=== PATIENT | male | born 1995 | race African-American/Black ===

== ENCOUNTER 2019-04-04 15:53 | Inpatient (IN) | payer OTHER ==
[~2019-04-04 15:53] MED LIST: INFUSION IV ONE; [UNRECOGNIZED DRUG - OTHER] IV ONE
[2019-04-04 16:18] LABS: ABS Basophils 0.1 10^3/ul (0-0.2); ABS Eosinophils 0.1 10^3/ul (0-0.6); ABS Lymphocytes 1.3 10^3/ul (1.0-4.8); ABS Monocytes 1.1 10^3/ul (0-0.8); ABS Neutrophils 9.1 10^3/ul (1.5-7.7); Eosinophil % 0.7 %; Hematocrit 43 % (42-52); Hemoglobin 14.9 g/dL (14.0-18.0); Lymphocyte % 11.2 %; Mean Corpuscular HGB Conc 35 g/dL (31-36); Mean Corpuscular Hemoglobin 28 pg (27-31); Mean Corpuscular Volume 80 fL (80-94); Mean Platelet Volume 8.6 fL (7.4-10.4); Nucleated Red Blood Cells % 0.2; Platelet Count 183 10^3/uL (150-450); Red Blood Count 5.37 10^6 /uL (4.18-5.48); Red Cell Distribution Width 13 % (10-15); White Blood Count 11.6 10^3/uL (3.5-10.8)
[2019-04-04] MEDS ORDERED: Succinylcholine* 20 MG/ML 10 ML VIAL ONE (16:23)
[2019-04-04] MEDS ORDERED: Midazolam* 1 MG/ML 10 ML VIAL (10 MG) ONE (16:23)
[2019-04-04] MEDS ORDERED: Etomidate* 2 MG/ML 20 ML VIAL (40 MG) ONE (16:23)
--- NOTE | 2019-04-04 16:26 | ED ---
Substance Abuse/Use - HPI Summary HPI Summary: This patient is a 23 year old M presenting to [facility] accompanied by correctional officers with a chief complaint of K2 overdose since earlier today. Pt brought in by EMS for overdose of K2 at [facility]. Pt is unresponsive to verbal stimuli, but responds to painful stimulus. His pupils are dilated and eyes are blood shot. Per corrections officers, pt fell off from a table and was crawling around the yard. Per facility, the pt vomited. The patient rates the pain 0/10 in severity. Symptoms aggravated by nothing. Symptoms alleviated by nothing. History from pt was unobtainable due to nonverbal status from drug overdose - Level 5 Caveat. - History Of Current Complaint Chief Complaint: EDOverdose Stated Complaint: OVERDOSE PER EMS Time Seen by Provider: 04/04/19 16:02 Hx Obtained From: Other: - correctional officers Hx From Patient Unobtainable Due To: Other - nonverbal status due to K2 overdose Onset/Duration of Drug/ETOH Abuse: Hours - earlier today Ingestion History: Type/Name Of Drug - K2 Severity Initially: Moderate Severity Currently: Moderate Aggravating Factor(s): Nothing Alleviating Factor(s): Nothing - Allergies/Home Medications Allergies/Adverse Reactions: Allergies Allergy/AdvReac Type Severity Reaction Status Date / Time No Known Allergies Allergy Verified 04/04/19 18:30 PMH/Surg Hx/FS Hx/Imm Hx Previously Healthy: No Musculoskeletal History: Denies: Hx Arthritis Sensory History: Denies: Hx Cataracts, Hx Legally Blind EENT History: Denies: Hx Deafness, Hx Auditory Problems - Surgical History Surgical History: Unable to Obtain/Confirm - nonverbal status of pt due to drug overdose - Level 5 Caveat Infectious Disease History: No Infectious Disease History: Denies: Traveled Outside the [place] in Last 30 Days - Family History Known Family History: Positive: Other - unable to obtain due to nonverbal status of pt - Level 5 Caveat - Social History Alcohol Use: unable to obtain due to nonverbal status of pt - Level 5 Caveat Hx Substance Use: Yes Smoking Status (MU): Unknown if Ever Smoked - unable to obtain due to nonverbal status of pt - Level 5 Caveat Review of Systems Constitutional: Other - positive - drug overdose Positive: Vomiting All Other Systems Reviewed And Are Negative: No - Comments Additional Review of Systems Comments: Unable to obtain ROS due to nonverbal status of pt from drug overdose - Level 5 Caveat Physical Exam - Summary Physical Exam Summary: Further findings were unobtainable due to nonverbal status of pt due to drug overdose - Level 5 Caveat. Constitutional: Well-developed, Well-nourished, Alert. (-) Distressed Skin: Warm, Dry HENT: Normocephalic; Atraumatic Eyes: Conjunctiva normal Neck: Musculoskeletal ROM normal neck. (-) JVD, (-) Stridor, (-) Tracheal deviation Cardio: Rhythm regular, rate normal, Heart sounds normal; Intact distal pulses; The pedal pulses are 2+ and symmetric. Radial pulses are 2+ and symmetric. (-) Murmur Pulmonary/Chest wall: Effort normal. (-) Respiratory distress, (-) Wheezes, (-) Rales Abd: Soft, (-) tenderness, (-) Distension, (-) Guarding, (-) Rebound Musculoskeletal: (-) Edema Lymph: (-) Cervical adenopathy Neuro: Alert, Oriented x3 Psych: Mood and affect Normal Anal: No foreign body, normal anus, no blood Triage Information Reviewed: Yes Vital Signs On Initial Exam: Initial Vitals Temp Pulse Resp BP Pulse Ox 98.3 F 98 24 111/72 100 04/04/19 15:55 04/04/19 15:55 04/04/19 15:55 04/04/19 15:55 04/04/19 15:55 Vital Signs Reviewed: Yes Diagnostics - Vital Signs Vital Signs Temp Pulse Resp BP Pulse Ox 04/04/19 15:55 98.3 F 98 24 111/72 100 - Laboratory Lab Results: Lab Results 04/04/19 Range/Units 16:10 WBC 11.6 H (3.5-10.8) 10^3/uL RBC 5.37 (4.18-5.48) 10^6 /uL Hgb 14.9 (14.0-18.0) g/dL Hct 43 (42-52) % MCV 80 (80-94) fL MCH 28 (27-31) pg MCHC 35 (31-36) g/dL RDW 13 (10-15) % Plt Count 183 (150-450) 10^3/uL MPV 8.6 (7.4-10.4) fL Neut % (Auto) 78.3 % Lymph % (Auto) 11.2 % Arthur % (Auto) 9.4 % Eos % (Auto) 0.7 % Baso % (Auto) 0.4 % Absolute Neuts (auto) 9.1 H (1.5-7.7) 10^3/ul Absolute Lymphs (auto) 1.3 (1.0-4.8) 10^3/ul Absolute Monos (auto) 1.1 H (0-0.8) 10^3/ul Absolute Eos (auto) 0.1 (0-0.6) 10^3/ul Absolute Basos (auto) 0.1 (0-0.2) 10^3/ul Absolute Nucleated RBC 0.0 10^3/ul Nucleated RBC % 0.2 Result Diagrams: 04/05/19 03:50 04/05/19 03:50 Lab Statement: Any lab studies that have been ordered have been reviewed, and results considered in the medical decision making process. - CT Cervical Spine CT Interpretation Completed By: Radiologist Summary of CT Findings: IMPRESSION: No CT evidence for traumatic cervical spine injury. These findings were reviewed by Dr. Simmons. Brain CT Interpretation Completed By: Radiologist Summary of CT Findings: IMPRESSION: No acute intracranial abnormality. These findings were reviewed by Dr. Simmons. - EKG 1605 Cardiac Rate: NL - 87 BPM EKG Rhythm: Sinus Rhythm Summary of EKG Findings: EKG at 1605 shows 87 BPM, sinus rhythm, no STEMI Re-Evaluation - Re-Evaluation First Eval Re-Evaluation Time: 17:25 Change: Improved Comment: Pt is breathing comfortably. Course/Dx - Course Course Of Treatment: Course of Treatment limited due to Level 5 Caveat - nonverbal status due to drug overdose. This patient is a 23 year old M presenting to [facility] accompanied by correctional officers with a chief complaint of K2 overdose since earlier today. Pt brought in by EMS for overdose of K2 at [address] [place] [address] [facility]. Pt is unresponsive to verbal stimuli, but responds to painful stimulus. His pupils are dilated and eyes are blood shot. Per corrections officers, pt fell off from a table and was crawling around the yard. Per facility, the pt vomited. The patient rates the pain 0/10 in severity. Symptoms aggravated by nothing. Symptoms alleviated by nothing. History from pt was unobtainable due to nonverbal status from drug overdose - Level 5 Caveat. Physical exam shows no foreign body, normal anus, no blood. Further findings were unobtainable due to nonverbal status of pt from drug overdose. Lab results show WBC 11.6, absolute neuts 9.1, absolute monos 1.1, INR 1.41. Brain CT IMPRESSION: No acute intracranial abnormality. Cervical Spine CT IMPRESSION: No CT evidence for traumatic cervical spine injury. EKG at 1605 shows 87 BPM, sinus rhythm, no STEMI. I was unable to obtain substantial medical evidence from [address] [place], [place] [address]al facility. During ED course, pt was given fentanyl, Versed Drip, Versed, fluids, Zofran INJ, Diprivan. At 1729, Dr. Mariano from ICU agrees to admit pt. - Diagnoses Provider Diagnoses: Overdose, Acute encephalopathy - Physician Notifications Discussed Care Of Patient With: Dr. Mariano Time Discussed With Above Provider: 17:29 Instructed by Provider To: Other - Dr. Mariano from ICU agrees to admit pt. - Critical Care Time Critical Care Time: 30-74 min Discharge ED - Sign-Out/Discharge Documenting (check all that apply): Patient Departure - admit Patient Received Moderate/Deep Sedation with Procedure: Yes - Discharge Plan Condition: Fair Disposition: ADMITTED TO [facility] - Billing Disposition and Condition Condition: FAIR Disposition: Admitted to [facility] - Attestation Statements Document Initiated by Scribe: Yes Documenting Scribe: Ricco Valle Provider For Whom Scribe is Documenting (Include Credential): Dr. Benja Simmons MD Scribe Attestation: Ricco Meraz scribed for Dr. Benja Simmons MD on 04/11/19 at 0818. Scribe Documentation Reviewed: Yes Provider Attestation: The documentation as recorded by the Ricco brown accurately reflects the service I personally performed and the decisions made by me, Dr. Benja Simmons MD Status of Scribe Document: Viewed
[2019-04-04 16:37] LABS: ALT 16 U/L (7-52); AST 24 U/L (13-39); Albumin 4.4 g/dL (3.2-5.2); Albumin/Globulin Ratio 1.5 (1-3); Alkaline Phosphatase 51 U/L (34-104); Anion Gap 6 mmol/L (2-11); BUN/Creatinine Ratio 15.2 (8-20); Blood Urea Nitrogen 16 mg/dL (6-24); CO2 Carbon Dioxide 27 mmol/L (22-32); Calcium 9.8 mg/dL (8.6-10.3); Chloride 102 mmol/L (101-111); EGFR African American 104.1 (>60); EGFR Non-African American 86.1 (>60); Globulin 2.9 g/dL (2-4); Glucose 92 mg/dL (70-100); Potassium 4.1 mmol/L (3.5-5.0); Sodium 135 mmol/L (135-145); Total Protein 7.3 g/dL (6.4-8.9)
[2019-04-04] MEDS ORDERED: Ondansetron INJ* 2 MG/ML VIAL ONE (16:39)
[2019-04-04] MEDS ORDERED: Ondansetron INJ* 2 MG/ML VIAL IV ONE (16:45)
[2019-04-04] MEDS: Propofol* 100 ML IV SCH ×3 (16:45→21:50)
[2019-04-04] MEDS ORDERED: fentaNYL* 50 MCG/ML 2 ML VIAL (100 MCG VIAL) IV SLOW PU ONE (16:53)
[2019-04-04 16:57] LABS: Acetaminophen < 15 mcg/mL; Alcohol < 10 mg/dL (<10); Salicylate < 2.50 mg/dL (<30)
[2019-04-04] MEDS ORDERED: Propofol* 100 ML IV SCH ×3 (17:00)
[2019-04-04] MEDS ORDERED: Midazolam* 1 MG/ML 10 ML VIAL (10 MG) IV SLOW PU ONE ×2 (17:03→20:58)
[2019-04-04] MEDS ORDERED: fentaNYL INFUSION 50 MCG/ML* 2,500 MCG/50 ML BAG IV SCH ×2 (17:15→18:00)
[2019-04-04] MEDS: fentaNYL INFUSION 50 MCG/ML* 2,500 MCG/50 ML BAG IV SCH (17:22)
[2019-04-04] MEDS ORDERED: NS 0.9% 1000 ML** 1,000 ML IV SCH (17:45)
[2019-04-04 17:55] LABS: Activated Partial Thrombo Time 32.8 seconds (26.0-38.0); INR 1.41 (0.82-1.09)
[2019-04-04] MEDS ORDERED: Midazolam IV for DRIP* 100 MG in NS 0.9% 100 ML* 80 ML IV SCH (18:00)
--- NOTE | 2019-04-04 18:10 | HP ---
History of Present Illness - History of Present Illness Reason for Visit: ARF on mechanical ventilation History of Present Illness: 23 Y.O. Male from [facility] p/w apparent K2 overdose. Patient came to ED with officers non-responsive. Per reports, patient was behaving erratic at [facility] and crawling around yard. No other medical Hx can be obtained. Patient evaluated in the ED. As patient was non-responsive, patient was emergently intubated. After being intubated, patient became agitated and required high doses of Versed and Fentanyl. Patient also was further paralyzed because he could not be controlled by 3 officers and hand-cuffs. Patient now sedated when I saw him in the ED. - Past Medical History Cardiac: Other - cannot attain Pulmonary: Other - cannot attain PORTFOLIO ARCHITECT: Other - cannot attain Gastrointestinal: Other - cannot attain Psych: Other - cannot attain - Past Surgical History Past Surgical History: Other - cannot attain - Past Family History Family History: Other - cannot attain - Past Social History Drugs: Other - cannot attain Review of Systems - Review of Systems Constitutional: Positive: Other - cannot attain Eyes: Positive: Other - Medications/Allergies Medications: Current Medications Fentanyl Citrate (Fentanyl Infusion Bag 50 Mcg/Ml 50 Ml) 2,500 mcg in 50 mls @ 1.5 mls/hr IV .PER RATE [facility] Last Admin: 04/04/19 17:22 Dose: 1.5 mls/hr Midazolam HCl 100 mg/ Sodium (Chloride) 100 mls @ 10 mls/hr IV .Q24HR ISAIAS; Protocol Sodium Chloride (Ns 0.9% 1000 Ml) 1,000 mls @ 75 mls/hr IV PER RATE [facility] Propofol (Diprivan*) 100 mls @ 0 mls/hr IV .PER PROTOCOL ISAIAS; Protocol Exam - Exam Vital Signs: Vital Signs (72 hours) 04/04/19 04/04/19 04/04/19 15:55 15:56 16:02 Temperature 98.3 F Pulse Rate 98 82 83 Respiratory 24 27 28 Rate Blood Pressure 111/72 111/72 (mmHg) O2 Sat by Pulse 100 97 97 Oximetry 04/04/19 04/04/19 04/04/19 16:26 16:41 16:48 Temperature Pulse Rate 85 100 96 Respiratory Rate Blood Pressure 189/124 144/98 168/80 (mmHg) O2 Sat by Pulse 94 99 99 Oximetry 04/04/19 04/04/19 04/04/19 16:53 17:01 17:03 Temperature Pulse Rate 85 124 Respiratory 22 Rate Blood Pressure 149/69 187/90 (mmHg) O2 Sat by Pulse 100 75 Oximetry 04/04/19 04/04/19 04/04/19 17:08 17:13 17:18 Temperature Pulse Rate 85 87 81 Respiratory Rate Blood Pressure 111/47 104/47 108/49 (mmHg) O2 Sat by Pulse 100 100 100 Oximetry 04/04/19 04/04/19 17:22 17:23 Temperature Pulse Rate 80 Respiratory 44 Rate Blood Pressure 104/48 (mmHg) O2 Sat by Pulse 100 Oximetry General: Other - intubated HEENT: Atraumatic Lungs: Clear to auscultation Cardiovascular: Regular rate Abdomen: Normal bowel sounds, Soft, No tenderness Extremities: No edema Skin: No rashes Neurological: Other - sedated Assessment/Plan - Assessment/Plan Assessment: Overdose 2/2 K2? ARF on MV D#0 2/2 Overdose and airway protection Severe agitation Plan: Admit to ICU Sedate with Fentanyl and Propofol. Max Fentanyl 200 mcg/hr. Attempt to refrain from Benzo's if possible Wean to extubate in AM Low Tidal volume settings. May tolerate better Pressure support tonight if not synching with vent Fall precautions Admit to ICU for monitoring Hold sedation tomorrow at 8 am for extubation trial @ 9 am. 56 minutes
[2019-04-04] MEDS ORDERED: Propofol* 10 MG/ML 20 ML BTL IV PUSH ONE (19:01)
[2019-04-04 19:48] LABS: Urine Appearance Turbid; Urine Bacteria Absent (Absent); Urine Bilirubin Negative (Negative); Urine Blood 1+ (Negative); Urine Color Yellow; Urine Glucose Negative (Negative); Urine Ketones Negative (Negative); Urine Nitrite Negative (Negative); Urine Protein Negative (Negative); Urine Red Blood Cell 3+(>10/hpf) (Absent); Urine Specific Gravity 1.017 (1.010-1.030); Urine Squamous Epithelial Cell Present (Absent); Urine Urobilinogen Negative (Negative); Urine White Blood Cell Trace(0-5/hpf) (Absent)
[2019-04-04 20:06] LABS: Urine Benzodiazepine Screen Presumptive Positive (None Detect); Urine Opiates Screen None Detected (None Detect)
[2019-04-04 21:27] LABS: Troponin I 0.01 ng/mL (<0.04)
[2019-04-04] MEDS: Chlorhexidine MOUTHWASH 0.12%* 15 ML UDC TOPICAL SCH (21:28)
[2019-04-05] MEDS: Chlorhexidine MOUTHWASH 0.12%* 15 ML UDC TOPICAL SCH ×6 (00:14→20:40)
[2019-04-05] MEDS ORDERED: NS 0.9% 1000 ML** 1,000 ML IV ONE (00:16)
[2019-04-05] MEDS: Propofol* 100 ML IV SCH ×3 (00:29→07:03)
[2019-04-05] MEDS: NS 0.9% 1000 ML** 1,000 ML IV SCH ×5 (01:20→22:30)
[2019-04-05] MEDS: fentaNYL INFUSION 50 MCG/ML* 2,500 MCG/50 ML BAG IV SCH (01:56)
[2019-04-05] MEDS: Pantoprazole IV* 40 MG IV SCH (02:08)
[2019-04-05] MEDS ORDERED: NS 0.9% 1000 ML/HR X 1 BAG (TOTAL 1000 ML) IV ONE (03:00)
[2019-04-05 04:08] LABS: Hematocrit 39 % (42-52); Hemoglobin 13.2 g/dL (14.0-18.0); Mean Corpuscular HGB Conc 34 g/dL (31-36); Mean Corpuscular Hemoglobin 28 pg (27-31); Mean Corpuscular Volume 82 fL (80-94); Platelet Count 138 10^3/uL (150-450); Red Blood Count 4.79 10^6 /uL (4.18-5.48); Red Cell Distribution Width 13 % (10-15); White Blood Count 8.7 10^3/uL (3.5-10.8)
[2019-04-05 04:16] LABS: Calcium 7.9 mg/dL (8.6-10.3); EGFR African American 121.3 (>60); EGFR Non-African American 100.2 (>60); Potassium 3.9 mmol/L (3.5-5.0)
--- NOTE | 2019-04-05 09:38 | PN ---
Date of Service: 04/05/19 Critical Care Services: extubated in AM following but still somewhat lethargic Urine tox + for Benzo's which got in the ED Vital Signs: Temp Pulse Resp BP SpO2 FiO2 99.3 F 55 14 100/39 100 50 04/05/19 08:15 04/05/19 08:15 04/05/19 06:00 04/05/19 08:15 04/05/19 08:15 04/05 04:00 Physical Exam: Gen: NAD. Lethargic but following HEENT: EOMI Lungs: CTA B/L Cardiac: RRR Abdomen:+ BS's, Soft, NTP. No rebound or guarding Extremities: No DEXTER Neuro:No focal deficits Fluid Balance (Past 24 Hours): I= O= Net Intake & Output 04/03/19 04/04/19 04/05/19 04/06/19 06:59 06:59 06:59 06:59 Intake Total 3324 Output Total 1640 Balance 1684 Weight 222 lb 10.67 oz Intake: IV Fluids 2864 NS (0.9%) 2864 Medicated IV 433 CC - Propofol/Diprivan 433 IV Narcotic Infusion 27 Fentanyl 27 Output: NG Tube Drainage Amount 650 Winter 990 Labs: Laboratory Results - last 24 hr 04/04/19 04/04/19 04/04/19 16:10 16:10 16:10 WBC 11.6 H RBC 5.37 Hgb 14.9 Hct 43 MCV 80 MCH 28 MCHC 35 RDW 13 Plt Count 183 MPV 8.6 Neut % (Auto) 78.3 Lymph % (Auto) 11.2 [place] % (Auto) 9.4 Eos % (Auto) 0.7 Baso % (Auto) 0.4 Absolute Neuts (auto) 9.1 H Absolute Lymphs (auto) 1.3 Absolute Monos (auto) 1.1 H Absolute Eos (auto) 0.1 Absolute Basos (auto) 0.1 Absolute Nucleated RBC 0.0 Nucleated RBC % 0.2 INR (Anticoag Therapy) APTT Sodium 135 Potassium 4.1 Chloride 102 Carbon Dioxide 27 Anion Gap 6 BUN 16 Creatinine 1.05 Est GFR ( Amer) 104.1 Est GFR (Non-Af Amer) 86.1 BUN/Creatinine Ratio 15.2 Glucose 92 Lactic Acid 0.7 Calcium 9.8 Total Bilirubin 0.90 AST 24 ALT 16 Alkaline Phosphatase 51 Troponin I 0.01 Total Protein 7.3 Albumin 4.4 Globulin 2.9 Albumin/Globulin Ratio 1.5 Urine Color Urine Appearance Urine pH Ur Specific [place] Urine Protein Urine Ketones Urine Blood Urine Nitrate Urine Bilirubin Urine Urobilinogen Ur Leukocyte Esterase Urine WBC (Auto) Urine RBC (Auto) Ur Squamous Epith Cells Urine Bacteria Urine Glucose Urine Ascorbic Acid Salicylates < 2.50 Urine Opiates Screen Acetaminophen < 15 Ur Barbiturates Screen Ur Phencyclidine Scrn Ur Amphetamines Screen U Benzodiazepines Scrn Urine Cocaine Screen U Cannabinoids Screen Serum Alcohol < 10 04/04/19 04/04/19 04/04/19 16:10 19:29 19:29 WBC RBC Hgb Hct MCV MCH MCHC RDW Plt Count MPV Neut % (Auto) Lymph % (Auto) [place] % (Auto) Eos % (Auto) Baso % (Auto) Absolute Neuts (auto) Absolute Lymphs (auto) Absolute Monos (auto) Absolute Eos (auto) Absolute Basos (auto) Absolute Nucleated RBC Nucleated RBC % INR (Anticoag Therapy) 1.41 H APTT 32.8 Sodium Potassium Chloride Carbon Dioxide Anion Gap BUN Creatinine Est GFR ( Amer) Est GFR (Non-Af Amer) BUN/Creatinine Ratio Glucose Lactic Acid Calcium Total Bilirubin AST ALT Alkaline Phosphatase Troponin I Total Protein Albumin Globulin Albumin/Globulin Ratio Urine Color Yellow Urine Appearance Turbid Urine pH 5.0 Ur Specific [place] 1.017 Urine Protein Negative Urine Ketones Negative Urine Blood 1+ A Urine Nitrate Negative Urine Bilirubin Negative Urine Urobilinogen Negative Ur Leukocyte Esterase Negative Urine WBC (Auto) Trace(0-5/hpf) Urine RBC (Auto) 3+(>10/hpf) A Ur Squamous Epith Cells Present A Urine Bacteria Absent Urine Glucose Negative Urine Ascorbic Acid * A Salicylates Urine Opiates Screen None detected Acetaminophen Ur Barbiturates Screen None detected Ur Phencyclidine Scrn None detected Ur Amphetamines Screen None detected U Benzodiazepines Scrn Presumptive positive A Urine Cocaine Screen None detected U Cannabinoids Screen None detected Serum Alcohol 04/05/19 04/05/19 03:50 03:50 WBC 8.7 RBC 4.79 Hgb 13.2 L Hct 39 L MCV 82 MCH 28 MCHC 34 RDW 13 Plt Count 138 L MPV 9.0 Neut % (Auto) Lymph % (Auto) [place] % (Auto) Eos % (Auto) Baso % (Auto) Absolute Neuts (auto) Absolute Lymphs (auto) Absolute Monos (auto) Absolute Eos (auto) Absolute Basos (auto) Absolute Nucleated RBC Nucleated RBC % INR (Anticoag Therapy) APTT Sodium 137 Potassium 3.9 Chloride 109 Carbon Dioxide 24 Anion Gap 4 BUN 12 Creatinine 0.92 Est GFR ( Amer) 121.3 Est GFR (Non-Af Amer) 100.2 BUN/Creatinine Ratio 13.0 Glucose 87 Lactic Acid Calcium 7.9 L Total Bilirubin AST ALT Alkaline Phosphatase Troponin I Total Protein Albumin Globulin Albumin/Globulin Ratio Urine Color Urine Appearance Urine pH Ur Specific [place] Urine Protein Urine Ketones Urine Blood Urine Nitrate Urine Bilirubin Urine Urobilinogen Ur Leukocyte Esterase Urine WBC (Auto) Urine RBC (Auto) Ur Squamous Epith Cells Urine Bacteria Urine Glucose Urine Ascorbic Acid Salicylates Urine Opiates Screen Acetaminophen Ur Barbiturates Screen Ur Phencyclidine Scrn Ur Amphetamines Screen U Benzodiazepines Scrn Urine Cocaine Screen U Cannabinoids Screen Serum Alcohol Impression: Overdose 2/2 K-2 s/p extubation for ARF for airway protection Plan: Monitor in ICU today s/p extubation If agitated, can start Precedex and give pushes of Ativan. Now does not need Transfer to floor in the AM Critical Care Time: 44
[2019-04-05] MEDS ORDERED: Ketorolac INJ* 15 MG/ML 1 ML VIAL IV PUSH ONE (18:15)
[2019-04-05] MEDS: Acetaminophen TAB* 325 MG PO PRN (21:11)
[2019-04-05] MEDS: Benzocaine/Menthol LOZ* 1 LOZENGE PO PRN (21:12)
[2019-04-06] MEDS: Chlorhexidine MOUTHWASH 0.12%* 15 ML UDC TOPICAL SCH ×4 (00:06→18:08)
[2019-04-06] MEDS: Benzocaine/Menthol LOZ* 1 LOZENGE PO PRN ×2 (03:21→11:33)
[2019-04-06] MEDS: Pantoprazole IV* 40 MG IV SCH (03:21)
[2019-04-06] MEDS: NS 0.9% 1000 ML** 1,000 ML IV SCH ×3 (05:05→20:24)
[2019-04-06] MEDS: Acetaminophen TAB* 325 MG PO PRN ×2 (07:44→20:23)
--- NOTE | 2019-04-06 09:48 | PN ---
Progress Note - Progress Note Date of Service: 04/06/19 - Transfer note Note: Transfer note Date of admission to ICU 04/04/19 Date of transfer: 04/06/19 Reason for ICU admission: AMS sec to drug overdose Pt seen and examined at bedside. Plan of care discussed with bed side RN. Pt is 23 y o m with h/o drug abuse, was brought in from [facility] for AMS , pt was found to be unresponsive and was intubated in ED. Pt was sedated with Propofol and Fentanyl. He also needed paralytic dose due to severe agitation post intubation even while on sedation. Pt was extubated 04/05/19. Pt has been doing well interms of mental status and resp status. 04/06/19-He has been c/o difficulty talking, not able to verbalize. Was able to swallow liquids without any evidence of chocking. He also c/o throat pain. He has c/o left shoulder pain and abd pain on lt side. X-ray of shoulder was normal. He had urinary retention, required straight cath last night wiht drainage of 1L of urine. He has not voided yet this am PMHx: Migraine Meds:Propronolol 40mg bid Active Medications Generic Name Dose Route Start Last Admin Trade Name Freq PRN Reason Stop Dose Admin Acetaminophen 975 mg 04/05/19 20:42 04/06/19 07:44 Tylenol Tab* PO 975 mg Q8H PRN Administration Pain - Mild to Severe Chlorhexidine Gluconate 15 ml 04/04/19 21:00 04/06/19 03:56 Peridex Mouth Wash 0.12%* TOPICAL Not Given Q4H ISAIAS Sodium Chloride 1,000 mls @ 150 mls/hr 04/05/19 00:16 04/06/19 05:05 Ns 0.9% 1000 Ml IV 150 mls/hr PER RATE ISAIAS Administration Pantoprazole Sodium 40 mg 04/05/19 02:00 04/06/19 03:21 Protonix Iv* IV 40 mg Q24H ISAIAS Administration Throat Lozenges 1 luke 04/05/19 20:45 04/06/19 03:21 Chloraseptic Luke* PO 1 luke Q6H PRN Administration SORE THROAT Vital Signs Temp Pulse Resp BP Pulse Ox 99.8 F 88 13 126/61 95 04/06/19 08:00 04/06/19 08:01 04/06/19 08:01 04/06/19 08:00 04/06/19 08:01 O/E: Pt in NAD HEENT: PERRLA, able to open mouth, MP-4, Uvula midline, able to move tongue Lungs: Good a/e b/l CVS: S1, S2+ Abd: Soft, BS+, mild tenderness in left epigastric area, no rebound Musculo skeletal: Lt shoulder tenderness and swelling noted, able to make fist, limited ROM due to pain, cuffs to LE however able to move Neuro: Alert, awake, no obvious neuro deficits Brief summary of hospitalization: 23 y o m from [facility] admitted for K2 overdose with AMS, agitation was intubated for airway protection, was extubated in less than 24 hrs. Pt with agitation post intubation, no further concerns currently with mental status. Active issues: 1. Pt has been unable to verbalize, also c/o throat pain. ? trauma sec to intubation versus residual effect of k2. Pt with no trouble swallowing. Swallow evaluation ordered. ENT consultation was requested, might see him on Monday. 2. Pt with swollen left extremity and left shoulder, limited ROM. X-ray within normal limits. Reports of possible trauma to the extremity when pt was agitated in ED. Will order CT. 3.Urinary retention: Drug effect is likely the cause. Will check residual and do straight cath. Will monitor closely and consider CT spine if sx persist. 4. DVT, GI px Patient stable to be transferred to regular medical floor under Dr Dickinson`s service.
[2019-04-07] MEDS ORDERED: Oxymetazoline 0.05% NASAL SPR* 15 ML BTL ONE (07:30)
[2019-04-07] MEDS ORDERED: Lidocaine 4% TOPICAL* 50 ML TOP.SOLN TOPICAL ONE (07:30)
--- NOTE | 2019-04-07 08:55 | PN ---
Subjective Date of Service: 04/07/19 Interval History: Pt is feeling ok. He continues to have very quite speech -essentially a whisper. He continues to have discomfort with swallowing. His L>R arm is painful. Both are swollen. It hurts to move (ie sitting up in bed). Objective Active Medications: Acetaminophen (Tylenol Tab*) 975 mg PO Q8H PRN PRN Reason: Pain - Mild to Severe Last Admin: 04/06/19 20:23 Dose: 975 mg Sodium Chloride (Ns 0.9% 1000 Ml) 1,000 mls @ 150 mls/hr IV PER RATE ISAIAS Last Admin: 04/06/19 20:24 Dose: 150 mls/hr Throat Lozenges (Chloraseptic Luke*) 1 luke PO Q6H PRN PRN Reason: SORE THROAT Last Admin: 04/06/19 11:33 Dose: 1 luke Vital Signs - 8 hr 04/07/19 04/07/19 03:04 08:00 Temperature 98 F Pulse Rate 70 Respiratory 24 18 Rate Blood Pressure 133/59 (mmHg) O2 Sat by Pulse 98 Oximetry Oxygen Devices in Use Now: None Appearance: Young male sitting up in bed, NAD Eyes: No Scleral Icterus Ears/Nose/Mouth/Throat: Mucous Membranes Moist, - - speech is a whisper Respiratory: Symmetrical Chest Expansion and Respiratory Effort, Clear to Auscultation Cardiovascular: NL Sounds; No Murmurs; No JVD, RRR, - - non-pitting edema of the bilateral upper extremities L>R, no LE edema Abdominal: NL Sounds; No Tenderness; No Distention Extremities: No Clubbing, Cyanosis Skin: No Nodules or Sclerosis Neurological: Alert and Oriented x 3 Result Diagrams: 04/05/19 03:50 04/05/19 03:50 Additional Lab and Data: Lab Results 04/04/19 Range/Units 16:10 WBC 11.6 H (3.5-10.8) 10^3/uL RBC 5.37 (4.18-5.48) 10^6 /uL Hgb 14.9 (14.0-18.0) g/dL Hct 43 (42-52) % MCV 80 (80-94) fL MCH 28 (27-31) pg MCHC 35 (31-36) g/dL RDW 13 (10-15) % Plt Count 183 (150-450) 10^3/uL MPV 8.6 (7.4-10.4) fL Neut % (Auto) 78.3 % Lymph % (Auto) 11.2 % [place] % (Auto) 9.4 % Eos % (Auto) 0.7 % Baso % (Auto) 0.4 % Absolute Neuts (auto) 9.1 H (1.5-7.7) 10^3/ul Absolute Lymphs (auto) 1.3 (1.0-4.8) 10^3/ul Absolute Monos (auto) 1.1 H (0-0.8) 10^3/ul Absolute Eos (auto) 0.1 (0-0.6) 10^3/ul Absolute Basos (auto) 0.1 (0-0.2) 10^3/ul Absolute Nucleated RBC 0.0 10^3/ul Nucleated RBC % 0.2 Microbiology and Other Data: Microbiology 04/04/19 19:29 Urine Culture - Final Urine No Growth (<1,000 CFU/mL) 04/04/19 19:30 Nasal Screen MRSA (PCR) - Final Nasal Mrsa Not Detected Assess/Plan/Problems-Billing Mr Dickinson is a 23 yo M who is currently [facility] who overdosed on K2 resulting in severe agitation, requiring intubation for airway protection who is now extubated. - Patient Problems (1) Overdose Current Visit: Yes Status: Acute Code(s): T50.901A - POISONING BY UNSP DRUG/ MEDS/BIOL SUBST, ACCIDENTAL, INIT SNOMED Code(s): 31682619 Comment: Pt reportedly overdosed on K2 and became severely agitated. He required max doses of propofol and fentanyl while intubated and additionally prn doses of benozdiazepines. He is now calm and appropriate. Mental status is clear. (2) Hypophonia Current Visit: Yes Status: Acute Code(s): R49.8 - OTHER VOICE AND RESONANCE DISORDERS SNOMED Code(s): 44475377 Comment: Pt seen by Dr. Hopper today. Scoped and by nursing report, vocal cords appeared erythematous and irritated. Was told voice should return in time. (3) Rhabdomyolysis Current Visit: Yes Status: Acute Code(s): M62.82 - RHABDOMYOLYSIS SNOMED Code(s): 619680964 Comment: Pt with bilateral arm edema, forearms are more edematous than the upper arm. This is mildly tender to palpation. I am concerned he may have mild rhabdomyolysis secondary to the thrashing around and having to be held down by the guards. Will add CPK to labs drawn in ICU yesterday and draw CPK today. Continue NS at 150ml/hr for now and if CPK is not markedly elevated will reduce rate. (4) Urinary retention Current Visit: Yes Status: Acute Code(s): R33.9 - RETENTION OF URINE, UNSPECIFIED SNOMED Code(s): 010420557 Comment: Likely from the K2. Now resolved. (5) DVT prophylaxis Current Visit: Yes Status: Acute Code(s): Z29.9 - ENCOUNTER FOR PROPHYLACTIC MEASURES, UNSPECIFIED SNOMED Code(s): 473981340 Comment: start lovenox as pt not ambulating much (6) Full code status Current Visit: Yes Status: Acute Code(s): Z78.9 - OTHER SPECIFIED HEALTH STATUS SNOMED Code(s): 987809622
[2019-04-07] MEDS: NS 0.9% 1000 ML** 1,000 ML IV SCH ×2 (10:53→17:57)
[2019-04-07] MEDS: Enoxaparin(*) 40 MG/0.4 ML SYR SUBCUT SCH (11:03)
--- NOTE | 2019-04-07 12:03 | CONS ---
CONSULTATION REPORT: DATE OF CONSULT: 04/07/19 REQUESTING CONSULTATION: Hospitalist Service. REASON FOR CONSULT: Sore throat and dysphonia, painful swallowing following intubation. HISTORY OF PRESENT ILLNESS: The patient is a 23-year-old who apparently overdosed on a drug called K2, which required emergency intubation. He spent some time in the intensive care unit and his throat has been sore and he has had a weak voice ever since extubation. He denies any other medical problems, not taking medications regularly. He does not smoke cigarettes, but he has smoked other things. PHYSICAL EXAMINATION: He has a weak but adequate voice when urged to speak. He has some edema of his uvula and his oropharynx. His nose was sprayed with Cy- Synephrine and 4% lidocaine and nasal laryngoscopy performed through his left nostril. He has normal laryngeal function. He is erythematous and irritated in the posterior glottis along the vocal processes of the arytenoids and the posterior glottis consistent with a recent intubation. There are not any further masses or lesions. ASSESSMENT: Assessment is that the patient had an emergency intubation, he has got an edematous uvula and some inflammation and irritation in his vocal cords from his intubation. RECOMMENDATION: I don't think this will be a significant problem, it should go away in a week or so. [id number]/[facility] #: [id number] [facility]ENTER[facility]al
[2019-04-08] MEDS: NS 0.9% 1000 ML** 1,000 ML IV SCH ×2 (00:28→05:43)
[2019-04-08 07:32] VITALS: BP 130/76
--- NOTE | 2019-04-08 09:41 | DS ---
CC: Provider at [facility]* DISCHARGE SUMMARY: DATE OF ADMISSION: 04/04/19 DATE OF DISCHARGE: 04/08/19 PRIMARY CARE PROVIDER: Provider at [facility]. PRINCIPAL DIAGNOSES: 1. Probable K2 overdose requiring intubation for airway protection. 2. Probable mild rhabdomyolysis secondary to trauma of thrashing on the bed and being restrained. 3. Vocal cord irritation from emergent intubation with resultant dysphonia. HOSPITAL COURSE: Mr. Dickinson is a 23-year-old male currently incarcerated at [facility] who was found acting bizarrely, crawling around on the yard, and brought to the emergency room where he was diagnosed with a probable K2 overdose. The patient was poorly responsive. There was concern for him protecting his airway. He was then emergently intubated in the emergency room. He became severely agitated requiring high-dose fentanyl drip and propofol drip. He ultimately required paralytics as he was unable to be controlled by the 2 medications and 3 officers holding him down as well as being handcuffed. The patient was promptly extubated the following day. He had very little voice initially. Dr. Hopper saw the patient on 04/07/19 and scoped him. He was noted to have some edema of the uvula and oropharynx. He is erythematous and irritated on the posterior glottis along the vocal processes of the arytenoids and posterior glottis consistent with a recent intubation. There are not any further masses or lesions. It was felt that the patient's dystonia was likely related to emergent intubation. It was felt that the voice should return within a week or so. The patient has already had improvement in his voice just from the day prior to discharge. The patient has also complained of left greater than right arm pain. Specifically, it is in the shoulder. He underwent a CT scan of the left upper extremity, which did not reveal any evidence of fracture. He was noted to have bilateral arm edema. This is nonpitting. My suspicion is the patient likely developed some rhabdomyolysis related to the thrashing around and having to be manually held down. His CPK on the day prior to discharge was mildly elevated at 273. Unfortunately, I was unable to add on any other CPK levels to his labs. The patient has been hydrated adequately throughout his hospital stay. He is able to eat and as noted above, his voice is improving. It is felt the patient is stable for discharge back to [facility] today. PHYSICAL EXAMINATION: On the day of discharge, the patient is awake, alert, and oriented, sitting up in bed, in no acute distress. Cardiac exam reveals normal S1, S2 with a regular rate and rhythm. His lungs are clear. His abdomen is soft, nontender, nondistended. He has no lower extremity edema. He does have nonpitting edema of the upper extremities. FOLLOWUP CONCERNS: The patient is being discharged to [facility] today, 04/08/19. Activity level is as tolerated. Diet is regular. Condition on discharge is stable. TIME SPENT: Thirty minutes were spent on discharging this patient. [id number]/[facility] #: [id number] NICK
[2019-04-08] MEDS: Enoxaparin(*) 40 MG/0.4 ML SYR SUBCUT SCH (11:38)
== END 2019-04-08 12:30 | DRG 812 ==
LOC: ED 15:53 → ICU 17:29 → EEVIPCON 17:29 → MEDTELE 04-06 18:25 → MED 04-06 18:56
PROVIDERS: ADMIT Internal Medicine; ATTEND Hospitalist
PROC: 5A1935Z Respiratory Ventilation, Less than 24 Consecutive Hours (ICD-10-PCS; principal; 2019-04-04)
PROC: 0BH17EZ Insertion of Endotracheal Airway into Trachea, Via Natural or Artificial Opening (ICD-10-PCS; 2019-04-04)
DX: T40.7X1A Poisoning by cannabis (derivatives), accidental (unintentional), initial encounter (principal); J96.00 Acute respiratory failure, unspecified whether with hypoxia or hypercapnia; T79.6XXA Traumatic ischemia of muscle, initial encounter; R49.0 Dysphonia; M25.512 Pain in left shoulder; M25.511 Pain in right shoulder; R33.8 Other retention of urine; M79.89 Other specified soft tissue disorders; Y92.149 Unspecified place in prison as the place of occurrence of the external cause; Z79.899 Other long term (current) drug therapy
CPT/HCPCS: 36415; 70450; 71045; 72125; 80048; 80053; 80307; 80320; 80329; 81003; 81015; 82550; 83605; 84484; 85025; 85027; 85610; 85730; 87086; 87641; 93005; 94003; 99285; A9270-GY; G0480; J0330; J1650; J1885; J2250; J2405; J2704; J3010